=== PATIENT | female | born 1975 | race Caucasian/White ===

== ENCOUNTER 2018-03-16 19:29 | Emergency (ER) | payer SELFPAY ==
[2018-03-16] MEDS ORDERED: TURM500C4 (19:48)
--- NOTE | 2018-03-16 19:49 | ER Report ---
History and Physical Time Seen By MD: 19:49 Hx. of Stated Complaint: PT TRIPPED ON HER GOAT AROUND 330 AND FELT PAIN,. KNEECAP IS LATERAL HPI/ROS CHIEF COMPLAINT: Left knee pain HISTORY OF PRESENT ILLNESS: 43-year-old female patient presents to emergency room with complaint of left knee pain. 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 She states that one caught her knee with its horn and as it walked by brush its shoulder but up against it is felt a popping in her knee. She states that after that she was unable to bend her knee. She states that she has significant amounts of pain with any movement. She states that this occurred approximately 330 this afternoon. She denies any numbness tingling to the toes. She has not taken any medication for this. She did drink significant amounts of fluid to make sure she wasn't dehydrated. Patient denies any head or neck pain. Patient believes she is dislocated her patella. REVIEW OF SYSTEMS: Respiratory: No cough, no dyspnea. Cardiovascular: No chest pain, no palpitations. Gastrointestinal: No vomiting, no abdominal pain. Musculoskeletal: As noted above Allergies: Coded Allergies: No Known Drug Allergies (Unverified , 03/16/18) Home Meds Active Scripts Ondansetron (ZOFRAN ODT) 4 Mg Tab.rapdis, 4 MG PO Q6H PRN for NAUSEA/VOMITING, #20 TAB.ITA Prov:ESME DOMINGO [facility] 03/16/18 Ibuprofen (IBUPROFEN) 600 Mg Tablet, 1 TAB PO Q6H PRN for PAIN, #40 TAB Prov:ESME DOMINGO [facility] 03/16/18 Hydrocodone Bit/Acetaminophen (HYDROCODON-ACETAMINOPHEN 5-325) 1 Each Tablet, 1 EACH PO Q4-6H PRN for PAIN, #20 TAB Prov:ESME DOMINGO [facility] 03/16/18 Reported Medications Turmeric/Turmeric Root Extract (Turmeric 500 mg Capsule) 450 Mg-50 Mg Capsule 03/16/18 Past Medical/Surgical History Patient has a past medical history of wrist fracture, alcohol use. Patient has surgical history of appendectomy. Reviewed Nurses Notes: Yes Hx Substance Use Disorder: No Hx Alcohol Use: Yes (OCC) Constitutional Vital Sign - Last 24 Hours 03/16/18 03/16/18 03/16/18 03/16/18 19:29 19:32 19:37 19:42 Temp 99.2 Pulse ??? 103 Resp 16 B/P (MAP) 119/74 (89) 119/74 120/73 (89) Pulse Ox 92 O2 Delivery Room Air 03/16/18 03/16/18 03/16/18 03/16/18 19:44 19:59 20:00 20:14 Pulse 105 100 99 B/P (MAP) 116/86 (96) Pulse Ox 92 91 94 03/16/18 03/16/18 03/16/18 03/16/18 20:29 20:30 20:44 20:59 Pulse 105 ? B/P (MAP) 114/80 (91) Pulse Ox 93 Physical Exam General Appearance: The patient is alert, has no immediate need for airway protection and no current signs of toxicity. Respiratory: Chest is non tender, lungs are clear to auscultation. Cardiac: regular rate and rhythm Musculoskeletal: Neck: Neck is supple and non tender. Extremities have full range of motion and are non tender. Patient's patella seems to be more proximal on the knee that it ought to be. Patient also has loose muscle that is palpable on the medial aspect of the knee. Patient does have tenderness with any palpation of the knee. Skin: No rashes or lesions. DIFFERENTIAL DIAGNOSIS: After history and physical exam differential diagnosis was considered for patella dislocation, patella tendon rupture, fracture. Medical Decision Making EKG/Imaging Imaging KNEE 3 VIEW LEFT Indication: Left knee pain. Patellar dislocation. Comparison: None available Findings: 3 views left knee were obtained. Subluxation of patella laterally and superiorly. No indication of fracture. No other dislocation or bony lesion. No significant joint effusion. Soft tissues show mild edema. No radiopaque foreign body. IMPRESSION: 1. Subluxation of the patella laterally and superiorly. Report Dictated By: Germán Santiago at 03/16/2018 8:19 PM Report E-Signed By: Germán Santiago at 03/16/2018 8:21 PM ED Course/Re-evaluation ED Course Patient was admitted to exam room, history of physical were obtained. Differential diagnoses were considered. On examination lungs are clear, heart is regular, patient has tenderness to the left knee. The patella seems to be more proximal than it should be. I'm able to palpate the joint and location where the patella should set. She does have tenderness to palpation. I also note that she has a loose muscle to the medial aspect of the left knee. An x-ray was done of the left knee. Reviewing the images it does appear the patella is far more proximal than it should be. I believe that she is likely torn her patellar tendon. I did call discussed the case with Dr. Funes, orthopedic surgeon, who recommend placing patient in a knee immobilizer and having her follow-up in the clinic next week. I discussed this with the patient and she verbalized understanding and agreement. Patient was given a dose of Lortab. The emergency room. We also gave her prescription for was applied pain medication, ibuprofen as well Zofran. Patient is to follow-up with primary [facility] next week. Discusses the patient who verbalized understanding and agreement with plan. Decision to Disposition Date: Mar 16, 2018 Decision to Disposition Time: 20:27 Depart Departure Latest Vital Signs Vital Signs Date Time Temp Pulse Resp B/P (MAP) Pulse Ox O2 Delivery O2 Flow Rate FiO2 03/16/18 20:59 ??? 03/16/18 20:30 114/80 (91) 03/16/18 20:29 93 03/16/18 19:37 99.2 16 Room Air Impression: Primary Impression: Patellar tendon rupture Condition: Improved Disposition: HOME OR SELF-CARE New Scripts Ondansetron (ZOFRAN ODT) 4 Mg Tab.rapdis 4 MG PO Q6H PRN for NAUSEA/VOMITING, #20 TAB.ITA Prov: ESME DOMINGO 03/16/18 Ibuprofen (IBUPROFEN) 600 Mg Tablet 1 TAB PO Q6H PRN for PAIN, #40 TAB Prov: ESME DOMINGO 03/16/18 Hydrocodone Bit/Acetaminophen (HYDROCODON-ACETAMINOPHEN 5-325) 1 Each Tablet 1 EACH PO Q4-6H PRN for PAIN, #20 TAB Prov: ESME DOMINGO 03/16/18 Patient Instructions: GENERAL ER DISCHARGE INSTRUCTIONS Additional Instructions: Limit activity by pain. Ice the knee through the immobilizer; 2-3 times a day for 20-30 minutes. Wear the knee immobilizer when you are up moving around, you may take it off to shower or to sleep. Follow up with [facility], call Monday to make an appointment. Return to the ER with uncontrollable pain. You may take Ibuprofen as needed for pain in addition to the pain medication. Don't take any additional Tylenol while on the pain medication. Problem Qualifiers Primary Impression: Patellar tendon rupture Encounter type: initial encounter Laterality: left Qualified Codes: S86.812A - Strain of other muscle(s) and tendon(s) at lower leg level, left leg, initial encounter ESME DOMINGO Mar 16, 2018 19:49
[2018-03-16] MEDS ORDERED: ONDANSETRON 4 MG/2 ML VIAL IVP ONE (20:00)
[2018-03-16] MEDS ORDERED: PROPOFOL EMUL 10MG/ML 20 ML VL IVP ONE (20:00)
[2018-03-16] MEDS ORDERED: NS(*) 0.9% 1000 ML BAG 1,000 ML IV ONE (20:00)
[2018-03-16] MEDS ORDERED: fentaNYL CITR 100 MCG/2 ML AMP IVP ONE (20:00)
[2018-03-16] MEDS ORDERED: ACET/HYDROC 5/325MG TH ER ONLY 2 TAB/BOTTLE PO ONE (20:20)
[2018-03-16] MEDS ORDERED: APAP/HYDROCODONE 325/5 TAB PO ONE (20:20)
[2018-03-16] MEDS ORDERED: HYDR-385 PO (20:25)
--- NOTE | 2018-03-16 20:25 | RADIOLOGY IMAGING REPORT ---
FACILITY: [facility] - [place] PATIENT NAME: Oumou Buckner : 1975 MR: [id number] V: [id number] EXAM DATE: ORDERING PHYSICIAN: ESME DOMINGO TECHNOLOGIST: Location: [facility] [place] Patient: Oumou Buckner : 1975 Visit/Account:[id number] Date of Sevice: 03/16/2018 KNEE 3 VIEW LEFT Indication: Left knee pain. Patellar dislocation. Comparison: None available Findings: 3 views left knee were obtained. Subluxation of patella laterally and superiorly. No indication of fracture. No other dislocation or b crow lesion. No significant joint effusion. Soft tissues show mild edema. No radiopaque foreign body. IMPRESSION: 1. Subluxation of the patella laterally and superiorly. Report Dictated By: Germán Santiago at 03/16/2018 8:19 PM Report E-Signed By: Germán Santiago at 03/16/2018 8:21 PM WSN:[id number]
[2018-03-16 20:30] VITALS: BP 114/80
[2018-03-16] MEDS ORDERED: IBUP600T22 PO (20:46)
[2018-03-16] MEDS ORDERED: ONDA4TAB PO (20:48)
[2018-03-16] MEDS ORDERED: ONDANSETRON 4 MG ODT TH SL ONE (20:50)
== END 2018-03-16 20:45 | disposition home or self-care (01) ==
LOC: ER 19:38
DX: S86.812A Strain of other muscle(s) and tendon(s) at lower leg level, left leg, initial encounter (principal); W55.32XA Struck by other hoof stock, initial encounter
CPT/HCPCS: 73562; 99283; L1830; S0119